=== PATIENT | female | born 1965 | race African-American/Black ===

== ENCOUNTER → 2024-07-22 | Day surgery (SDC) | payer MEDICAID ==
[~2024-07-22] MED LIST: HYDR25TA PO; IBUP-2029 PO; LIDOCAINE HCL 1% 10 MG/ML 10ML VIAL ONE; ROSU40TA PO; SODIUM BICARBONATE 4% 2.4MEQ/5ML VIAL IV ONE; VALA500T55 PO
== END | disposition home or self-care (01) ==
LOC: RAD 07:22 → EDSTATUS 08:00
PROVIDERS: ATTEND Surgery Surgical Oncology
DX: D24.1 Benign neoplasm of right breast (principal); N63.10 Unspecified lump in the right breast, unspecified quadrant; Z79.899 Other long term (current) drug therapy; Z98.890 Other specified postprocedural states
CPT/HCPCS: 77065; 19281; J3490 ×2; J2003; A4648

== ENCOUNTER 2024-07-25 08:05 | Day surgery (SDC) | payer MEDICAID ==
[~2024-07-25] VITALS: Ht 154.9 cm; Wt 63.5 kg
[~2024-07-25 08:05] MED LIST changes: +BUPIVACAINE HCL/PF 0.5% (5MG/ML) 10ML ONE; +LACTATED RINGERS 1,000 ML IV SCH; -LIDOCAINE HCL 1% 10 MG/ML 10ML VIAL ONE; +LIDOCAINE HCL/EPINEPHRINE 1%-EPI 1:100,000 20ML VIAL ONE; -SODIUM BICARBONATE 4% 2.4MEQ/5ML VIAL IV ONE
[2024-07-25] MEDS ORDERED: PROPOFOL 200MG/20ML VIAL IV ONE (10:29)
[2024-07-25] MEDS ORDERED: FENTANYL CITRATE/PF 50MCG/ML 2ML VIAL ONE (10:29)
[2024-07-25] MEDS ORDERED: MIDAZOLAM HCL 2 MG/2 ML VIAL ONE (10:29)
[2024-07-25] MEDS ORDERED: ONDANSETRON HCL 4MG/2ML INJ ONE (10:29)
[2024-07-25] MEDS ORDERED: DEXAMETHASONE 4MG/ML 1ML VIAL ONE (10:29)
[2024-07-25] MEDS ORDERED: CEFAZOLIN SODIUM 1000MG/VIAL ONE (10:30)
[2024-07-25] MEDS ORDERED: ONDANSETRON HCL 4MG/2ML INJ IV PRN (10:45)
[2024-07-25] MEDS ORDERED: FENTANYL CITRATE/PF 50MCG/ML 2ML VIAL IV PRN (11:00)
[2024-07-25] MEDS ORDERED: ACETAMINOPHEN 1000MG/100ML 100 ML IV ONE (12:37)
[2024-07-25 13:16] VITALS: BP 179/74; PULSE 78; RESP 16
[2024-07-25] MEDS: HYDROMORPHONE HCL/PF 1MG/ML INJ IV PRN (13:16)
== END 2024-07-25 15:00 | disposition home or self-care (01) ==
LOC: OR 08:05
PROVIDERS: ATTEND Surgery Surgical Oncology
DX: D24.1 Benign neoplasm of right breast (principal); N60.31 Fibrosclerosis of right breast; N60.41 Mammary duct ectasia of right breast; N62 Hypertrophy of breast; I10 Essential (primary) hypertension; E78.5 Hyperlipidemia, unspecified; Z79.899 Other long term (current) drug therapy; Z98.891 History of uterine scar from previous surgery; Z90.710 Acquired absence of both cervix and uterus; Z80.0 Family history of malignant neoplasm of digestive organs
CPT/HCPCS: 19125; 19126; 88305; 76098; J3010; J3490 ×2; J0690; J1100; J2250; J2405; J2704; J1171; J2004; J0131